=== PATIENT | female | born 1980 | race Native Hawaiian/Other Pacific Islander ===

== ENCOUNTER 2020-03-06 08:21 | Outpatient (CLI) | payer BC | END 2020-03-06 21:04 | disposition home or self-care (01) | LOC: MAMMO 08:21 | PROVIDERS: ATTEND Specialist | DX: Z12.31 Encounter for screening mammogram for malignant neoplasm of breast (principal) ==

== ENCOUNTER 2020-04-02 07:55 | Outpatient (CLI) | payer BC | END 2020-04-02 22:00 | disposition home or self-care (01) | LOC: LABW 07:55 | PROVIDERS: ATTEND Physician Assistant | DX: R89.1 Abnormal level of hormones in specimens from other organs, systems and tissues (principal) | CPT/HCPCS: 36415; 82670; 83001; 84270; 84402; 84403 ==

== ENCOUNTER 2021-04-03 08:26 | Outpatient (CLI) | payer BC | END 2021-04-03 19:11 | disposition home or self-care (01) | LOC: MAMMO 08:26 | PROVIDERS: ATTEND Specialist | DX: Z12.31 Encounter for screening mammogram for malignant neoplasm of breast (principal) ==

== ENCOUNTER 2021-05-27 08:03 | Outpatient (CLI) | payer BC | END 2021-05-27 19:02 | disposition home or self-care (01) | LOC: LABW 08:03 | PROVIDERS: ATTEND Physician Assistant | DX: R89.1 Abnormal level of hormones in specimens from other organs, systems and tissues (principal) | CPT/HCPCS: 36415; 84402; 84403 ==

== ENCOUNTER 2022-04-07 08:21 | Outpatient (CLI) | payer BC | END 2022-04-07 20:32 | disposition home or self-care (01) | LOC: MAMMO 08:21 | PROVIDERS: ATTEND Specialist | DX: Z12.31 Encounter for screening mammogram for malignant neoplasm of breast (principal) ==